=== PATIENT | female | born 1995 | race African-American/Black ===

== ENCOUNTER 2020-08-26 19:14 | Emergency (ER) | payer SELFPAY ==
[~2020-08-26] VITALS: Ht 172.7 cm; Wt 75.0 kg
[2020-08-26] MEDS ORDERED: SODIUM CHLORIDE 0.9% 1,000 ML IV ONE (19:45)
[2020-08-26 20:37] LABS: MEAN CORPUSCULAR HEMOGLOBIN 40.1 pg (28.0-32.0); MEAN CORPUSCULAR VOLUME 115.5 fL (81.0-99.0); MEAN PLATELET VOLUME 8.4 fl (7.4-10.4); PLATELET 326 x1000/uL (130-400); RED BLOOD CELL COUNT 1.54 mill/uL (4.2-5.4); RED CELL DISTRIBUTION WIDTH 24.2 % (11.6-14.6)
[2020-08-26 20:41] LABS: CHLORIDE 113 mEq/L (98-107)
[2020-08-26 20:44] LABS: HCG SCREEN NEGATIVE
[2020-08-26 20:45] LABS: HEMATOCRIT. 17.8 % (36.0-48.0); HEMOGLOBIN. 6.2 g/dL (12.0-16.0)
[2020-08-26] MEDS ORDERED: HYDROMORPHONE HCL/PF 2MG/ML CPJ IV ONE ×2 (21:00→22:15)
[2020-08-26] MEDS ORDERED: DIPHENHYDRAMINE 50MG/ML VIAL IV ONE ×2 (21:00→22:45)
[2020-08-26 21:02] LABS: NUCLEATED RED BLOOD CELLS 9 /100 WBC; PLATELET ESTIMATE NORMAL
[2020-08-26] MEDS: ONDANSETRON HCL 4MG/2ML INJ IV PRN (21:36)
[2020-08-27] MEDS ORDERED: HYDROCODONE/ACETAMINOPHEN 10/325MG TABLET PO ONE (01:15)
[2020-08-27] MEDS ORDERED: DIPHENHYDRAMINE 50MG/ML VIAL IV ONE (03:45)
[2020-08-27] MEDS ORDERED: HYDROMORPHONE HCL/PF 2MG/ML CPJ IV ONE (03:45)
[2020-08-27] MEDS: ONDANSETRON HCL 4MG/2ML INJ IV PRN (04:55)
[2020-08-27] MEDS ORDERED: HYDROCODONE/ACETAMINOPHEN 5/325MG TABLET PO ONE (07:45)
[2020-08-27 07:49] VITALS: BP 113/47
== END 2020-08-27 08:06 | disposition home or self-care (01) ==
LOC: ER 19:14
DX: D57.818 Other sickle-cell disorders with crisis with other specified complication (principal); Z90.49 Acquired absence of other specified parts of digestive tract; F12.10 Cannabis abuse, uncomplicated; Z88.0 Allergy status to penicillin; Z88.2 Allergy status to sulfonamides
CPT/HCPCS: 36415; 80053; 84703; 85025; 85044; 86850; 86900; 86901; 86920; 93005; 96361; 96374; 96375; 96376; 99285; J1170; J1200; J2405; J7030; P9016